=== PATIENT | male | born 1990 | race American Indian/Alaskan Native ===

== ENCOUNTER 2018-01-06 09:56 | Emergency (ER) | payer OTHER ==
--- NOTE | 2018-01-06 11:06 | Emergency Department Report ---
ED Headache HPI - General Chief Complaint: Headache Stated Complaint: HEADACHE Time Seen by Provider: 01/06/18 10:45 - History of Present Illness Initial Comments: Patient is a 27-year-old [place] male who has a past medical history of hypertension and has not taken meds who presented with a headache. Patient states that since he was 19 every several months he has headaches back to back for several days. Patient's had a headache this time for almost a normal. It waxes and wanes in its severity. Patient states last night was quite severe as 9 out of 10 at the moment he states he is a 4 out of 10 is just a nagging pounding headache. Patient states it's usually centered behind his eyes. Oftentimes unilateral and he does have photosensitivity. Patient has some nausea last night but states that he does not have nausea during every episode. Patient denies any neck stiffness fevers chills chest pain shortness of breath cough cold congestion at this time. Allergies/Adverse Reactions: Allergies No Known Allergies Allergy (Unverified 01/06/18 10:02) Home Medications: Ambulatory Orders Amlodipine Besylate [Norvasc] 5 mg PO DAILY #30 tablet 01/06/18 Butalb/Acetamin/Caff 50-325-40 [Fioricet] 1 tab PO Q6HR PRN #15 tab 01/06/18 ED Review of Systems ROS: Stated complaint: HEADACHE Other details as noted in HPI Comment: All other systems reviewed and negative ED Past Medical Hx - Past Medical History Previous Medical History?: No - Surgical History Past Surgical History?: No - Social History Smoking Status: Current Some Day Smoker Substance Use Type: Alcohol - Medications Home Medications: Home Medications Medication Instructions Recorded Confirmed Last Taken Type Amlodipine Besylate [Norvasc] 5 mg PO DAILY #30 tablet 01/06/18 Unknown Rx Butalb/Acetamin/Caff 50-325-40 1 tab PO Q6HR PRN #15 tab 01/06/18 Unknown Rx [Fioricet] ED Physical Exam - General Limitations: No Limitations General appearance: alert, in no apparent distress - Head Head exam: Present: atraumatic, normocephalic - Eye Eye exam: Present: normal appearance - ENT ENT exam: Present: mucous membranes moist - Neck Neck exam: Present: normal inspection - Respiratory Respiratory exam: Present: normal lung sounds bilaterally. Absent: respiratory distress, wheezes, rales, rhonchi - Cardiovascular Cardiovascular Exam: Present: regular rate, normal rhythm. Absent: systolic murmur, diastolic murmur, rubs, gallop - GI/Abdominal GI/Abdominal exam: Present: soft, normal bowel sounds. Absent: distended, tenderness, guarding - Rectal Rectal exam: Present: deferred - Extremities Exam Extremities exam: Present: normal inspection - Back Exam Back exam: Present: normal inspection - Neurological Exam Neurological exam: Present: alert, oriented X3, CN II-XII intact, normal gait, reflexes normal. Absent: motor sensory deficit - Psychiatric Psychiatric exam: Present: normal affect, normal mood - Skin Skin exam: Present: warm, dry, intact, normal color. Absent: rash ED Course Vital Signs 01/06/18 10:03 Temperature 98.2 F Pulse Rate 90 Respiratory 16 Rate Blood Pressure 166/113 O2 Sat by Pulse 100 Oximetry ED Medical Decision Making - Medical Decision Making Patient has a classic pattern for cluster headaches. Patient to be referred to neurologist and restarted on Fioricet. Patient also has looks like undiagnosed hypertension. Patient was started on Norvasc 5 mg. Critical care attestation.: If time is entered above; I have spent that time in minutes in the direct care of this critically ill patient, excluding procedure time. ED Disposition Clinical Impression: Cluster headache Qualifiers: Headache chronicity pattern: unspecified pattern Intractability: not intractable Qualified Code(s): G44.009 - Cluster headache syndrome, unspecified , not intractable Hypertension Qualifiers: Hypertension type: unspecified Qualified Code(s): I10 - Essential (primary) hypertension Disposition: - TO HOME OR SELFCARE Is pt being admited?: No Does the pt Need Aspirin: No Condition: Stable Instructions: Hypertension (ED), Cluster Headache (ED) Prescriptions: Amlodipine Besylate [Norvasc] 5 mg PO DAILY #30 tablet Butalb/Acetamin/Caff 50-325-40 [Fioricet] 1 tab PO Q6HR PRN #15 tab PRN Reason: Headache Referrals: [facility] [Outside] - 3-5 Days ARNOLD BATES MD [Referring] - 3-5 Days LAKEISHA CASON MD [Staff Physician] - 3-5 Days HARRY MEADOWS MD [Referring] - 3-5 Days
[2018-01-06] MEDS ORDERED: CATAPRES PO ONE (11:08)
[2018-01-06] MEDS ORDERED: MOTRIN PO ONE (11:08)
[2018-01-06] MEDS ORDERED: ULTRAM PO ONE (11:08)
[2018-01-06 11:30] VITALS: BP 129/95
== END 2018-01-06 11:38 | disposition home or self-care (01) ==
LOC: ED 09:56
DX: G44.009 Cluster headache syndrome, unspecified, not intractable (principal); I10 Essential (primary) hypertension; Z72.0 Tobacco use
CPT/HCPCS: 99282